=== PATIENT | male | born 1980 | race Caucasian/White ===

== ENCOUNTER 2016-11-27 21:36 | Emergency (ER) | payer OTHER ==
[~2016-11-27] VITALS: Ht 182.9 cm; Wt 141.1 kg
[~2016-11-27 21:36] MED LIST: CITRATE OF MAG296 ML PO; PERCOCET 5/31 TABLET PO
[2016-11-27 23:30] VITALS: BP 155/96
== END 2016-11-27 23:30 | disposition home or self-care (01) ==
LOC: EME 21:36
DX: M54.42 Lumbago with sciatica, left side (principal)
CPT/HCPCS: 93971; 99281; 99283

== ENCOUNTER 2017-02-09 18:01 | Observation (INO) | payer OTHER ==
[~2017-02-09] VITALS: Ht 182.9 cm; Wt 142.8 kg
[2017-02-09 18:40] LABS: HEMATOCRIT 48.5 % (38.0-50.0); MCH 29.4 PG (29.0-34.0); MCHC 32.6 G/DL (30.0-36.0); MCV 90.1 FL (86-99); MEAN PLAT.VOLUME 9.3 uM^3 (9.0-12.4); PLATELET COUNT 353 K/uL (156-360); RBC DIS.WIDTH-CV 12.9 % (11.8-14.6); RBC DIS.WIDTH-SD 42.1 % (39-53); RED BLOOD COUNT 5.38 M/uL (4.00-5.50); WHITE BLOOD COUNT 9.9 K/uL (4.1-10.2)
[2017-02-09 18:55] LABS: CHLORIDE 106 mEq/L (99-109); POTASSIUM 3.3 mEq/L (3.7-5.4); SODIUM 142 mEq/L (136-147)
[2017-02-09 18:56] LABS: GLUCOSE 73 mg/dL (70-99)
[2017-02-09 18:58] LABS: ANION GAP 9 MEQ/L (2-14)
[2017-02-09 19:00] LABS: GFR ESTIMATE (CALCULATED) > 59 mL/min/
[2017-02-09 19:01] LABS: UREA NITROGEN (BUN) 9 mg/dL (9-23)
[2017-02-09 19:04] LABS: TROP-I INTERPRETATION NEGATIVE; TROPONIN-I < 0.01 ng/mL (0.0-0.30)
[2017-02-09] MEDS ORDERED: CEPHALEXIN500 MG PO (21:21)
[2017-02-09] MEDS ORDERED: IBUPROFEN800 MG PO (21:22)
[2017-02-09] MEDS ORDERED: PREDNISONE50 MG PO (21:22)
[2017-02-09] MEDS ORDERED: ENDOCET 5-3251 EACH PO (21:22)
[2017-02-09] MEDS ORDERED: OXYCODONE-APAP1 EAC6 PO (21:22)
[2017-02-09] MEDS ORDERED: CYCLOBENZAPRINE10 MG PO (21:22)
[2017-02-09 21:43] LABS: TROP-I INTERPRETATION NEGATIVE; TROPONIN-I < 0.01 ng/mL (0.0-0.30)
[2017-02-10 00:27] VITALS: BP 137/86
[2017-02-10 05:19] VITALS: BP 122/77
[2017-02-10 05:39] LABS: HEMATOCRIT 44.5 % (38.0-50.0); MCH 29.5 PG (29.0-34.0); MCHC 32.8 G/DL (30.0-36.0); MCV 89.9 FL (86-99); MEAN PLAT.VOLUME 9.3 uM^3 (9.0-12.4); PLATELET COUNT 290 K/uL (156-360); RBC DIS.WIDTH-SD 42.7 % (39-53); RED BLOOD COUNT 4.95 M/uL (4.00-5.50); WHITE BLOOD COUNT 7.6 K/uL (4.1-10.2)
[2017-02-10 05:53] LABS: INTER. NORMALIZED RATIO 1.1; PROTHROMBIN TIME 12.5 SEC (10.2-12.9)
[2017-02-10 05:57] LABS: PTT 36.4 SEC (25-37)
[2017-02-10 06:00] LABS: TROP-I INTERPRETATION NEGATIVE; TROPONIN-I < 0.01 ng/mL (0.0-0.30)
[2017-02-10 06:05] LABS: ANION GAP 10 MEQ/L (2-14); CHLORIDE 106 MEQ/L (99-109); GFR ESTIMATE (CALCULATED) > 59 mL/min/; GLUCOSE 89 mg/dL (70-99); POTASSIUM 3.6 MEQ/L (3.7-5.4); SAMPLE HEMOLYSIS CHECK 0; SAMPLE ICTERIC CHECK 0; SAMPLE LIPEMIA CHECK 0; SODIUM 141 MEQ/L (136-147); UREA NITROGEN (BUN) 9 mg/dL (9-23)
[2017-02-10 07:57] VITALS: BP 128/81
[2017-02-10] MEDS ORDERED: FAMOTIDINE20 MG PO (11:42)
[2017-02-10] MEDS ORDERED: ASPIR-LOW81 MG PO (11:42)
[2017-02-10 12:16] VITALS: BP 138/92
== END 2017-02-10 12:23 | disposition home or self-care (01) ==
LOC: EME 18:01 → 5WEST 23:31 → EDOF 23:31 → ENRESERV 23:32 → 5WEST 02-10 00:24
PROVIDERS: Emergency Medicine; Hospitalist
DX: R07.9 Chest pain, unspecified (principal); R00.2 Palpitations; R06.02 Shortness of breath; R06.83 Snoring; Z82.49 Family history of ischemic heart disease and other diseases of the circulatory system; E66.01 Morbid (severe) obesity due to excess calories; Z68.41 Body mass index [BMI] 40.0-44.9, adult; Z79.82 Long term (current) use of aspirin
CPT/HCPCS: 71020; 80048; 84484; 85027; 85379; 85610; 85730; 93005; 93306; 99281; 99285; G0378; J1650

== ENCOUNTER 2017-07-30 01:22 | Emergency (ER) | payer OTHER ==
[~2017-07-30] VITALS: Ht 185.4 cm; Wt 139.1 kg
[~2017-07-30 01:22] MED LIST changes: +ASPIR-LOW81 MG PO; +CEPHALEXIN500 MG PO; +CYCLOBENZAPRINE10 MG PO; +ENDOCET 5-3251 EACH PO; +FAMOTIDINE20 MG PO; +IBUPROFEN800 MG PO; +OXYCODONE-APAP1 EAC6 PO; +PREDNISONE50 MG PO
[2017-07-30 01:56] LABS: BASOPHIL (%) 0.4 % (0-1); BASOPHIL COUNT 0.1 K/uL (0-0.1); EOSINOPHIL (%) 2.5 % (0-5); EOSINOPHIL COUNT 0.3 K/uL (0-0.3); HEMOGLOBIN 14.8 G/DL (12.5-16.6); IMMATURE GRANULOCYTE (%) 0.7 % (0.0-0.7); LYMPHOCYTE (%) 28.9 % (15-42); LYMPHOCYTE COUNT 3.3 K/uL (1.0-2.8); MCH 29.1 PG (29.0-34.0); MCHC 33.6 G/DL (30.0-36.0); MCV 86.4 FL (86-99); MONOCYTE (%) 7.9 % (3-12); MONOCYTE COUNT 0.9 K/uL (0-0.8); NEUTROPHIL (%) 59.6 % (45-76); NEUTROPHIL COUNT 6.9 K/uL (1.8-6.4); PLATELET COUNT 360 K/uL (156-360); RBC DIS.WIDTH-CV 12.6 % (11.8-14.6); RED BLOOD COUNT 5.09 M/uL (4.00-5.50); WHITE BLOOD COUNT 11.6 K/uL (4.1-10.2)
[2017-07-30 02:06] LABS: CHLORIDE 105 mEq/L (99-109); POTASSIUM 3.5 mEq/L (3.7-5.4); SODIUM 141 mEq/L (136-147)
[2017-07-30 02:07] LABS: GLUCOSE 133 mg/dL (70-99)
[2017-07-30 02:11] LABS: CREATININE 0.9 mg/dL (0.6-1.3); GFR ESTIMATE (CALCULATED) > 59 mL/min/ (58.99-99999)
[2017-07-30 02:12] LABS: UREA NITROGEN (BUN) 11 mg/dL (9-23)
[2017-07-30] MEDS ORDERED: LORCET 5-325 M1 EACH PO (03:54)
[2017-07-30] MEDS ORDERED: FLOMAX0.4 MG PO (03:54)
[2017-07-30 04:13] LABS: APPEARANCE CLEAR ((CLEAR)); BILIRUBIN NEGATIVE; BLOOD NEGATIVE; COLOR YELLOW ((YELLOW)); GLUCOSE (STRIP) NEGATIVE; KETONES NEGATIVE; LEUKOCYTES NEGATIVE; NITRITE NEGATIVE; PROTEIN (STRIP) NEGATIVE; SPECIFIC GRAVITY 1.019 (1.000-1.030); UCUL ADDED? NO; UROBILINOGEN 0.2 MG/DL (0.2-1.0)
[2017-07-30 04:55] VITALS: BP 126/85
== END 2017-07-30 04:56 | disposition home or self-care (01) ==
LOC: EME 01:22
PROVIDERS: Emergency Medicine
DX: N13.2 Hydronephrosis with renal and ureteral calculous obstruction (principal); K44.9 Diaphragmatic hernia without obstruction or gangrene; K76.0 Fatty (change of) liver, not elsewhere classified
CPT/HCPCS: 74176; 80048; 81003; 85025; 99281; 99284; J1885; J2405; J3010